=== PATIENT | male | born 1965 | race Caucasian/White ===

== ENCOUNTER 2020-03-12 11:39 | Outpatient (CLI) | payer MEDICARE, MEDICAID, SELFPAY | END 2020-03-12 11:40 | disposition home or self-care (01) | LOC: ANHSURGERY 11:43 | PROVIDERS: PCP Family Medicine; Visit Provider Surgery | DX: C34.90 Malignant neoplasm of unspecified part of unspecified bronchus or lung (principal) | CPT/HCPCS: 36415 ==

== ENCOUNTER 2020-03-18 00:11 | Outpatient (CLI) | payer MEDICARE, MEDICAID, SELFPAY ==
[2020-03-18 17:43] LABS: SARS-CoV-2 RNA PCR Negative
== END 2020-03-18 00:12 | disposition home or self-care (01) ==
LOC: ANHCOVIDDT 00:11
PROVIDERS: PCP Family Medicine; Visit Provider Surgery
DX: Z01.818 Encounter for other preprocedural examination (principal); Z11.59 Encounter for screening for other viral diseases
CPT/HCPCS: 87635; C9803; U0003

== ENCOUNTER 2020-03-20 01:45 | Day surgery (SDC) | payer MEDICARE, MEDICAID, SELFPAY ==
[2020-03-11 11:42] VITALS: BMI 26.8
--- NOTE | ~2020-03-20 | XR_ITS ---
EXAMINATION: XR fl guide central line place DATE: 03/20/2020 13:15 INDICATION: Port placement. TECHNIQUE: 2 intraoperative fluoroscopic views of the chest were obtained. I was not present. Fluoros copy exposure time was 21 seconds. COMPARISON: Chest single view 03/20/2020 FINDINGS: There is a right internal jugular port with tip at superior cavoatrial junction. IMPRESSION: 1. Port tip at superior cavoatrial junction. Reviewed, dictated and finalized at location A.
--- NOTE | ~2020-03-20 | XR_ITS ---
EXAMINATION: XR chest port-a-cath/central DATE: 03/20/2020 13:25 INDICATION: Port placement. TECHNIQUE: A single frontal view of the chest was obtained. COMPARISON: Chest 2 views 11/25/2014 FINDINGS: There is volume loss in right hemithorax. There is a right perihilar mass. There are airspa ce opacities in right midlung zone. No pleural effusion or pneumothorax. The heart size is normal. Th ere is a right internal jugular port with tip in superior vena cava. IMPRESSION: 1. Port tip in superior vena cava. 2. Right perihilar mass, consistent with malignancy. 3. Airspace opacities in right midlung zone, likely postobstructive pneumonia. Reviewed, dictated and finalized at location A.
--- NOTE | 2020-03-20 05:57 | ECG_ITS ---
Measurements Intervals Cotton Rate: 83 P: 61 TX: 138 QRS: 63 QRSD: 87 T: 59 QT: 381 QTc: 449 Interpretive Statements SINUS RHYTHM EARLY PRECORDIAL R/S TRANSITION BORDERLINE ECG Electronically Signed On 03-20-2020 11:01:22 CDT by Alfred Delgado D.O.
[2020-03-20] MEDS: LACTATED RINGERS 1,000 ML 30 ML IV CONT (10:15)
[2020-03-20 10:43] LABS: Basophils Absolute Auto 0.1 K/mm3 (0.0-0.1); Basophils Percent Auto 0.9 % (0.2-1.2); Eosinophils Absolute Auto 0.5 K/mm3 (0-0.3); Eosinophils Percent Auto 5.3 % (0-4.4); Hematocrit 39.6 % (42.0-52.0); Immature Granulocyte Absolute 0.04 K/mm3 (0.00-0.031); Immature Granulocyte Percent A 0.5 % (0-0.5); Lymphocytes Absolute Auto 1.54 K/mm3 (0.9-3.2); Lymphocytes Percent Auto 17.7 % (18.3-44.2); Mean Corpuscular HGB Conc 30.3 g/dl (32-36); Mean Corpuscular Hemoglobin 22.9 pg (26-34); Mean Corpuscular Volume 75.7 fl (80-100); Mean Platelet Volume 9.9 fl (7.4-10.4); Monocytes Absolute Auto 0.6 K/mm3 (0.1-0.6); Monocytes Percent Auto 6.8 % (2.6-8.5); Neutrophils Percent Auto 68.8 % (45.5-73.1); Platelet Count Result 365 k/mm3 (150-375); Red Blood Count 5.23 M/mm3 (4.6-6.20); Red Cell Distribution Width 15.2 % (11.5-14.5); White Blood Count 8.7 K/mm3 (4.5-10.0)
--- NOTE | 2020-03-20 10:45 | WPDANESEPPF ---
Anes - Initial Pre Proc Eval Procedure: Operation Date: 03/20/20 12:00 Proposed Procedures p Insertion Melissa Cath - Domo Magallanes MD Date/Time: 03/20/20 10:45 Surgeon: Domo Magallanes MD Pre Op Diagnosis: Lung Ca Patient Data Age: 54 Gender: M Height: 5 ft 10 in Weight: 84.82 kg Allergies Allergy/AdvReac Type Severity Reaction Status Date / Time Penicillins Allergy Unknown Rash Verified 03/11/20 11:41 sertraline AdvReac Unknown shaky Verified 03/11/20 11:41 Home Medications Medication Instructions Recorded Confirmed Type albuterol sulfate [Ventolin HFA] 2 puff INHALATION DAILY 03/04/20 03/11/20 History budesonide-formoterol [Symbicort] 2 puff INHALATION DAILY 03/04/20 03/11/20 History ibuprofen 800 mg PO TID 03/04/20 03/11/20 History lithium carbonate 300 mg PO TID 03/04/20 03/11/20 History olanzapine 5 mg PO HS 03/04/20 03/11/20 History trazodone 150 mg PO HS 03/04/20 03/11/20 History ondansetron 4 mg PO Q8H PRN #30 tablet 03/12/20 Rx Laboratory Tests 03/20/20 03/20/20 03/20/20 10:36 10:36 10:36 WBC Pending RBC Pending Hgb Pending Hct Pending MCV Pending MCH Pending MCHC Pending RDW Pending Plt Count Pending MPV Pending Immature Gran % (Auto) Pending Neut % (Auto) Pending Lymph % (Auto) Pending [place] % (Auto) Pending Eos % (Auto) Pending Baso % (Auto) Pending Lymph # (Auto) Pending [place] # (Auto) Pending Eos # (Auto) Pending Baso # (Auto) Pending Abs Immat Gran (auto) Pending Absolute Neuts (auto) Pending Absolute Nucleated RBC Pending Nucleated RBC % Pending PT Pending INR Pending APTT Pending [place] Pending Patient hx anesthesia problems: none Family hx anesthesia problems: none PMFSH Past Medical History Medical History Bipolar 1 disorder COPD (chronic obstructive pulmonary disease) Schizophrenia Family History Family History Other Heart disease Paternal Uncle x 2 Social History Social History Smoking packs per day: 1 Smoking cigarettes per day: 20.0 Years smoked: 35 Smoking pack-years: 35.00 Smoking status: Former smoker Tobacco type: cigarettes Smoking end date: 10/16/16 Alcohol intake: current Spiritual care concerns: No Anes - Eval Final PreProcedure Day of Procedure 03/20/20 10:45 Patient weight: overweight Heart: regular rate and rhythm Lungs: decreased breath sounds Airway: Mallampati scale class II Neurological: other (alert) Last oral intake: >/= 8 hours ASA classification: IV Emergent: no Anesthetic plan: proceed Anesthesia type and monitoring: general GIVS and standard monitoring Informed Consent: The patient's anesthetic plan and its attendant risks and benefits were discussed with the patient/family/POA. Questions were solicited and answers provided to the satisfaction of the patient/family/POA.
[2020-03-20 11:00] VITALS: BP 120/75; PULSE 81; RESP 18; TEMP 36.2; O2SAT 98
[2020-03-20 11:02] LABS: Lithium 0.4 mmol/L (0.6-1.2)
[2020-03-20 11:10] LABS: Prothrombin Time 12.8 Seconds (11.1-14.7)
[2020-03-20 11:11] LABS: Partial Thromboplastin Time 30.7 SECONDS (22.3-36.8)
--- NOTE | 2020-03-20 11:11 | PM.HPGS ---
History of Present Illness History of Present Illness Consent: Risks, benefits, and alternatives of placement of a Port-A-Cath have been discussed and questions answered. Patient agrees to proceed with procedure. Chief complaint: Lung Ca Narrative: Obie Balbuena is a 54 year old male who was recently discovered to have non-small cell carcinoma of lung. This is mainly on the right side. He apparently had onset of coughing and some chest discomfort early this year. The CT of the chest done on January 10, 2020 showed bulky mediastinal and right hilar lymphadenopathy. Subsequent bronchoscopy with ultrasound and needle biopsy transbronchial E yielded the diagnosis of the non-small cell carcinoma of the lung. He does have a [place] mm pulmonary nodule in the right upper lobe on CT. There was also a 9 mm nodule in the right lower lobe. He has seen Dr. Ginger pedro and chemotherapy is planned. At this time he presents for placement of a port. Review of Systems Constitutional: Constitutional: Reports no additional constitutional complaints, Reports fatigue and Denies malaise Eyes: Eyes: Denies change in vision and Denies loss of vision ENT: Reports Normal hearing present, Denies change in voice, Denies dizziness, Denies hoarseness and Denies sore throat Cardiovascular: Cardiovascular: Denies chest pain, Denies leg edema and Denies dyspnea Respiratory: Respiratory: Denies cough, Denies dyspnea and Denies wheezing Comments: recent history of bronchoscopy showing some narrowing of the right upper lobe bronchus. He recently had a transbronchial biopsy of the lung showing non-small cell carcinoma. Gastrointestinal: Gastrointestinal: Denies hematochezia, Denies change in bowel habits and Denies heartburn Genitourinary: Genitourinary: Denies urinary frequency and Denies urinary incontinence Neurologic: Reports Normal hearing present, Denies confusion, Denies dizziness, Denies loss of vision, Denies memory loss and Denies seizure-like activity Psychiatric: Psychiatric: Denies confusion, Reports depression and Denies memory loss Comments: Patient apparently has a long standing history of schizophrenia and bipolar disorder. He is on treatment for same. Endocrine: Endocrine: Denies cold intolerance and Reports fatigue Hematologic/Lymphatic: Hematologic/Lymphatic: Denies easy bleeding and Denies easy bruising Allergic/Immunologic: Allergic/Immunologic: Denies wheezing PMFSH Past Medical History Medical History Bipolar 1 disorder COPD (chronic obstructive pulmonary disease) Schizophrenia Family History Family History Other Heart disease Paternal Uncle x 2 Social History Social History Smoking packs per day: 1 Smoking cigarettes per day: 20.0 Years smoked: 35 Smoking pack-years: 35.00 Smoking status: Former smoker Tobacco type: cigarettes Smoking end date: 10/16/16 Alcohol intake: current Spiritual care concerns: No Meds Home Medications and Allergies Home Medications Medication Instructions Recorded Confirmed Type albuterol sulfate [Ventolin HFA] 2 puff INHALATION DAILY 03/04/20 03/11/20 History budesonide-formoterol [Symbicort] 2 puff INHALATION DAILY 03/04/20 03/11/20 History ibuprofen 800 mg PO TID 03/04/20 03/11/20 History lithium carbonate 300 mg PO TID 03/04/20 03/11/20 History olanzapine 5 mg PO HS 03/04/20 03/11/20 History trazodone 150 mg PO HS 03/04/20 03/11/20 History ondansetron 4 mg PO Q8H PRN #30 tablet 03/12/20 Rx Allergies Allergy/AdvReac Type Severity Reaction Status Date / Time Penicillins Allergy Unknown Rash Verified 03/11/20 11:41 sertraline AdvReac Unknown shaky Verified 03/11/20 11:41 Exam Const: General: cooperative, healthy appearing, no acute distress, well developed and alert; No confusion Nutri
[2020-03-20] MEDS: CLINDAMYCIN 900 MG/NS 50 ML 900 MG/50 ML PIGGYBACK 50 MG IVPB (12:30)
[2020-03-20] MEDS: HEPARIN SODIUM 5,000 UNITS/ML VIAL 5000 UNITS IRRIGATION (12:49)
[2020-03-20] MEDS: BUPIVACAINE/EPINEPHRINE 0.5% 30 ML VIAL INFILTRATE (12:50)
--- NOTE | 2020-03-20 13:16 | PM.PROC ---
Procedure Note - Detailed Date of procedure: 03/20/20 Pre-op diagnosis: Lung Ca Non-small cell lung cancer on the right Post-op diagnosis: same Procedure performed: placement of Port-A-Cath Description of procedure: Patient was seen and marked in the pre-op area prior to coming to the OR. Patient was brought to the operating room. He was placed supine on the operating table and general IV sedation was induced. The nurse sawdust machine operator provided oxygen and IV sedation. Patient's head was carefully turned to the left side while in the supine position and the patient's entire neck and anterior chest on both sides was prepped and draped in the usual sterile fashion. Following this the appropriate time-out was completed confirming procedure and patient. We confirmed that all the needed equipment was present in the room. Following this the ultrasound probe was draped into the field and using the probe we carefully identified the carotid artery and jugular vein on the right neck. I marked the skin directly over the Rt. internal jugular vein. Following this, using the continuous ultrasound guidance, a Cook needle was placed through the skin into this vein. I then was able to draw back good dark blood. Once this was completed a guidewire using a J-tip was advanced through the needle and then the needle and the guidewire cover were withdrawn. C-arm fluoroscopy was used to confirm that the guidewire was nicely in the venous system. Once this was confirmed with the C - arm I preceded on by making the pocket for the port on the patient's anterior right chest approximately 3 centimeters below the clavicle overlying the chest wall. Local anesthetic was infiltrated into the skin where there was a transverse incision marked out. Incision was made and we made a pocket inferior to the incision with just a little dissection superior. The Bard low-profile port was tried in the pocket and seemed to fit well. Following this the catheter which had been placed on a tunneling device was tunneled from the port site on the anterior right chest up to the right neck where a small incision had been made with an #11 blade knife. Then the catheter was pulled through so that we would have 15 centimeters to put into the central venous system once the dilation took place. Following this we placed the dilator and sheath over the guidewire in the jugular vein and carefully dilated the tract into the central venous system. The guidewire and dilator were then removed, carefully covering the end of the sheath to prevent air embolus. The end of the catheter which had been cut off straight across and the tip checked was then inserted into the sheath and into the neck. I then carefully pulled the 2 arms of the tear-away sheath away as the assistant professor of physics held the catheter in position with a DeBakey forceps. Following this we checked the position of the catheter with C-arm fluoroscopy confirming that the tip seemed to be in the distal superior vena cava near the junction with the right atrium. I felt that it was in good position and so the rest of the catheter was pulled down toward the feet into the port site. We then measured to the appropriate position to cut the catheter to attach it to the port stem. Then the connector sealing device for the catheter port was placed onto the catheter and then the catheter cut to the appropriate length and inserted onto the stem of the port. Then the connector was advanced onto the stem over the catheter sealing it to the port. A single 3- 0 Prolene suture was also used during this to suture the connector to the port and to the underlying musculature. Following this at one other site the port was sutured to the underlying musculature with the 3-0 Proline. Both prior to connecting the catheter to the port and then using a straight Ng needle following this connection, the port was aspirated of good dark blood and flushed with heparinized saline to keep the catheter from h
[2020-03-20 13:17] VITALS: BP 121/72; PULSE 83; RESP 18; O2SAT 93
[2020-03-20 13:47] VITALS: BP 122/68; PULSE 83; O2SAT 94
--- NOTE | 2020-03-20 13:58 | SUR.PHASEII ---
4545- DR. MEJIA TO OUT PT RECOVERY TO REVIEW PT CHEST XRAY FOR PORT PLACEMENT. DR. MEJIA STATED CHEST X RAY LOOKS GOOD, CONFIRMED PORT PLACEMENT.
[2020-03-20 14:17] VITALS: BP 150/80; PULSE 76
--- NOTE | 2020-03-20 14:44 | SUR.PHASEII ---
1435- DR. MEJIA CALLED AND STATED PT NEEDS TO USE INHALER AND HE NEEDS IS TRAINING. HE STATED PT SHOULD COUGH AND DEEP BREATH. IS TRAINING COMPLETED WITH PT, PT VERBALIZED UNDERSTANDING.
== END 2020-03-20 14:43 | disposition home or self-care (01) ==
PROVIDERS: PCP Family Medicine; Visit Provider Surgery
PROC: (CPT 36561; principal; 2020-03-20 12:00)
DX: C34.91 Malignant neoplasm of unspecified part of right bronchus or lung (principal); J44.9 Chronic obstructive pulmonary disease, unspecified; F20.9 Schizophrenia, unspecified; F31.9 Bipolar disorder, unspecified; Z87.891 Personal history of nicotine dependence
CPT/HCPCS: 36561; 36415; 77001; 80178; 85025; 85610; 85730; 93005; C1788; J1644; J2250; J2704; J3010; J7040; J7120

== ENCOUNTER 2020-07-09 13:18 | Outpatient (CLI) | payer MEDICARE, MEDICAID, SELFPAY ==
--- NOTE | ~2020-07-09 | CT_ITS ---
EXAMINATION: CT chest w con DATE: 07/09/2020 13:57 INDICATION: Non-small cell lung cancer TECHNIQUE: Transaxial computed tomographic images of the chest were obtained after the administration of 75 cc of Omnipaque 350 intravenous contrast. The dose-length product (DLP) was 538.48 mGy-cm. Ite rative reconstruction was used. COMPARISON: None FINDINGS: There is an approximately 5.1 x 2.1 cm right suprahilar mass which encases the upper lobe a nd middle lobe bronchi and insinuates into the right paratracheal region. The mass abuts most of the right main pulmonary artery. Subcarinal lymph nodes also appear to be contiguous with the mass. There is mild emphysema. An approximately 1.4 x 1.2 cm pleural-based cavitary lesion is seen posterior med ially in the right upper lobe on image 29. There is a 0.7 cm peripheral nodule of the right lung apex on image 28. A trace right pleural effusion is present. There is no pneumothorax. The heart size is normal. A right internal jugular Port-A-Cath ends with its tip in the distal superior vena cava. IMPRESSION: 1. Right suprahilar mass infiltrating into the right paratracheal and subcarinal regions, consistent with primary bronchogenic carcinoma. 2. Right upper lobe nodules concerning for metastatic disease. Reviewed, dictated and finalized at location A. IMPRESSION: 1. Right suprahilar mass infiltrating into the right paratracheal and subcarina l regions, consistent with primary bronchogenic carcinoma. 2. Right upper lobe nodules concerning for metastatic disease.
== END 2020-07-09 13:19 | disposition home or self-care (01) ==
PROVIDERS: PCP Family Medicine; Visit Provider Internal Medicine Hematology & Oncology
DX: C34.91 Malignant neoplasm of unspecified part of right bronchus or lung (principal)
CPT/HCPCS: 71260; Q9967